=== PATIENT | male | born 2000 | race Caucasian/White ===

== ENCOUNTER 2022-07-26 15:50 | Emergency (ER) | payer OTHER, SELFPAY ==
[2022-07-26 15:51] VITALS: BP 133/58; PULSE 77; RESP 18; TEMP 36.9; O2SAT 98
[2022-07-26 16:23] LABS: Basophils Percent Auto 0.3 % (0.2-1.2); Eosinophils Percent Auto 0.4 % (0-4.4); Hematocrit 43.1 % (42.0-52.0); Hemoglobin 14.4 g/dL (14.0-18.0); Immature Granulocyte Absolute 0.03 K/mm3 (0.00-0.031); Immature Granulocyte Percent A 0.3 % (0-0.5); Lymphocytes Absolute Auto 2.05 K/mm3 (0.9-3.2); Mean Corpuscular HGB Conc 33.4 g/dl (32-36); Mean Corpuscular Hemoglobin 28.8 pg (26-34); Mean Corpuscular Volume 86.2 fl (80-100); Mean Platelet Volume 10.7 fl (7.4-10.4); Monocytes Absolute Auto 1.5 K/mm3 (0.1-0.6); Monocytes Percent Auto 13.7 % (2.6-8.5); Neutrophils Absolute Auto 7.2 K/mm3 (1.3-6.7); Neutrophils Percent Auto 66.3 % (45.5-73.1); Platelet Count Result 214 k/mm3 (150-375); Red Cell Distribution Width 13.3 % (11.5-14.5); White Blood Count 10.8 K/mm3 (4.5-10.0)
[2022-07-26 16:43] LABS: Alanine Aminotransferase 33 U/L (6-50); Albumin Level 4.4 g/dL (3.5-5.1); Alkaline Phosphatase 76 U/L (38-126); Anion Gap 12 mmol/L (8-16); Aspartate Amino Transferase 34 U/L (17-59); Bilirubin,Total 0.7 mg/dL (0.2-1.3); Blood Urea Nitrogen 11 mg/dL (9-20); Calcium 9.4 mg/dL (8.4-10.2); Carbon Dioxide 29 mmol/L (22-30); Chloride 101 mmol/L (98-107); Estimated CRCL calculation 120 ml/min; Estimated Glomerular Filt Rate > 60; Glucose 90 mg/dL (65-110); Lipase 127 U/L (23-300); Potassium 3.7 mmol/L (3.4-5.0); Sodium 142 mmol/L (137-145)
--- NOTE | 2022-07-26 17:30 | PC.NURSE ---
Pt to intake desk and states not wanting to be seen due to the wait. Pt states I will be back tomorrow. Pt ambulated out in NAD w/ steady gait.
[2022-07-26 17:53] LABS: Appearance Urine Clear (Clear); Bilirubin Urine 1+ (Negative); Blood Urine Negative (Negative); Color Urine Yellow (Yellow); Glucose Urine UA Negative (Negative); Ketones Urine Negative (Negative); Leukocyte Esterase Ur Negative LEU/UL (Negative); Nitrate Urine Negative (Negative); Protein Urine Negative (Negative); Specific Grav Ur 1.025 (1.001-1.035); Urobilinogen Urine 0.2 mg/dL (<2.0)
[2022-07-26 18:01] LABS: Mucus Urine Few /lpf; WBC Urine 0-3 /hpf
[2022-07-26 18:07] LABS: Add Urine Microscopic? YES
== END 2022-07-26 17:53 | disposition left against medical advice (07) ==
LOC: ANHED 17:47
PROVIDERS: Emergency Provider Emergency Medicine; PCP Pediatrics
DX: R19.7 Diarrhea, unspecified (principal)
CPT/HCPCS: 36415; 80053; 81001; 83690; 85025; 99199

== ENCOUNTER 2025-07-13 15:24 | Emergency (ER) | payer OTHER, SELFPAY | END 2025-07-13 15:25 | disposition left against medical advice (07) | DX: Z53.21 Procedure and treatment not carried out due to patient leaving prior to being seen by health care provider (principal) | CPT/HCPCS: 99199 ==

== ENCOUNTER 2025-07-13 15:50 | Emergency (ER) | payer OTHER, SELFPAY ==
--- OUTSIDE RECORDS SUMMARY | 2025-07-13 15:52 | XMS_ITS | Clinical Summary ---
Author Organization [address] Address [address] [place] [id number] Care Team Providers Care Wine Maker Name Role Phone Yash Pérez MD Primary Care Provider Unavai lable Allergies No known active allergies Medications amphetamine-dext roamphetamine (ADDERALL XR) 20 mg Extended Release 24 hour capsule Take 1 Cap by mouth daily operations lead. 30 Cap 0 07/15/2014 Active Active Problems Problem Noted Date Diagnosed Date Essential and other specified forms of tremor Superficial foreign body lip without major open wnd without infection 06/12/2011 Overview (06/12/2011): fish hook to lower lip ADHD (attention deficit hyperactivity disorder) 03/17/2010 At risk for overweight, pediatric, BMI 85-94% fo r age 0703/17/2010 Immunizations Immunization Administration Dates Next Due (ADACEL/BOOSTRIX)(10 YR UP) TDAP VACCINE, 0.5ML, IM 04/21/2011 (GARDASIL)(9-45 YRS) HUMAN PAPILLOMAVIRUS VACCINE, TYPES 6, 11, 16, 18, QUADRIVALENT (4VHPV), 3 DOSE, IM 04/18/2014 (HAVRIX/VAQTA)(12 MO-18 YRS) HEPATITIS A VACCINE 0.5 ML PED/ADOL 2 DOSE, IM 01/24/2013,04/21/2011 (INFANRIX)(6 WKS-6 YRS) DIPT HERIA, TETANUS TOXOIDS, AND ACCELLULAR PERTUSSIS VACCINE (DTAP), 0.5 ML IM 04/21/2005,10/16/2001,2000,09/01,2000 (IPOL)(6 WKS AND UP) POLIOVI JOSE VACCINE, INACTIVATED (IPV), 3 DOSE, SUBCUT OR IM 04/21/2005,10/16/2001,2000,06/10 (M-M-R II/PRIORIX)(12 MO UP) MEASLES, MUMPS AND RUBELLA VIRUS VACCINE, 0.5 ML IM/SUBCUT 04/21/2005,07/12/2001 (VARIVAX)(12 MOS UP)VARICELL A VIRUS VACCINE (PF) 0.5 ML, SUB CUT 04/21/2011,04/11/2001 HIB, Unspecified Formulation 10/05/2001, 2000,2000,06/10 Hepatitis B Vaccine 01/09/2001,2000,1999 Meningococcal A Conjugate Vaccine IM 04/21/2011 Pneumococcal conjugate, unsp ecified formulation 2000,2000,2000,06/02 Skin Test TB 04/05/2003 Family History Medical History Relation Name Comments Healthy Brother Other Brother appendicitis at 6 y.o. Healthy Father High Cholesterol Maternal Grandfather Hypertension Maternal Grandfather Other Maternal Grandmother Friedri ch's Ataxia Healthy Mother Cancer Paternal Grandfather Bone ca ncer, metastatic lymphoma? 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 Gender Identity Not on file Sexual Orientation Not on file Occupation Industry Job Start Date Job End Date Not on file Not on file Not on file Not on file Last Filed Vital Signs Vital Sign Reading Time Taken Comments Blood Pressure 108/66 02/03/2016 2:37 PM CDT Pulse 76 02/03/2016 2:37 PM CDT Temperature 36.9 C (98.5 F) 02/03/2016 2:37 PM CDT Respiratory Rate 16 02/03/2016 2:37 PM CDT Oxygen Saturation 99% 06/12/2011 1:55 PM CDT Inhaled Oxygen Concentration - - Weight 70.3 kg (155 lb) 02/03/2016 2:37 PM CDT Height 176.5 cm (5' 9.5) 02/03/2016 2:37 PM CDT Body Mass Index 22.56 02/03/2016 2:37 PM CDT Plan of Treatment Health Maintenance Due Date Last Done Comments HPV VACCINES (2 - Male 2-dos e series) 10/19/2014 04/18/2014 DTAP/TDAP/TD VACCINES (7 - T d or Tdap) 04/21/2021 04/21/2011, 04/21/2005, 10/16/2001, Additional history exists INFLUENZA VACCINE (#1) 2025 HEPATITIS B VACCINES Completed 01/09/2001, 2000, 2000 CHLAMYDIA SCREENING (ANNUAL) 11-24 YEARS Discontinued 02/03/2016 Procedures Procedure Name Priority Date/Time Associated Diagnosis Comments GC/CHLAMYDIA, GENITAL Routine 02/03/2016 3:41 PM CDT from Last 3 Months or Most Recently Relevant to Health Maintenance Results * GC/CHLAMYDIA, GENITAL (02/03/2016 3:41 PM CDT) C TRAC RNA NOT DETECTED NOT DETECTED [facility] N.GONORRHOEAE RNA, TMA NOT DETECTED NOT DETECTED [facility] SEE NOTE [facility] Comment: This test was performed using the APTIMA COMBO2 Assay ([employer] The analytical performance characteristics of this assay, when used to test [facility] specimens have been determined by [employer] [facility]. REPORT COMMENT: FASTING:NO Test Performed at: [facility] [address] [place] [address] JACITNO CARDENAS DO,MPH 02/03/2016 3:41 PM CDT us Yash Pérez MD MICRO - GEN [employer] [facility] Fi nal Result [facility] [address] [place] [address] from Last 3 Months or Most Recently Relevant to Health Maintenance Insurance [employer] ACCESS CHOICE [employer] CHOICE POS Care Teams Wine Maker Relationship Specialty Start Date End Date Yash Pérez MD PCP - General Pediatrics 01/27/10
[2025-07-13 16:00] VITALS: BP 140/59; PULSE 90; RESP 16; TEMP 36.7; O2SAT 100
[2025-07-13 17:16] LABS: Syphilis IgG/IgM Antibody Non-Reactive (Nonreactive)
[2025-07-13 17:27] LABS: Trichomonas Vag PCR NOT DETECTED (NOT DETECTE)
--- NOTE | 2025-07-13 18:08 | ED_ITS ---
HPI - Male Genitourinary General Chief complaint: Urogenital-Male Stated complaint: STD exposure Time Seen by Provider: 07/13/25 17:02 History of Present Illness HPI Narrative: Patient is a 25-year-old male who presents ER for concerns regarding an STD exposure. He slept with a woman 1 week ago and had unprotected sex. She then found out that he was talking to her sister as well and she told him that she had syphilis. He had contracted gonorrhea from the sane individual previously 2 months ago. He has experienced no lesions the penis. No dysuria, no testicular pain, and no urethral discharge. He has no rash. Related Data Allergies Allergy/AdvReac Type Severity Reaction Status Date / Time No Known Allergies Allergy Verified 07/13/25 15:50 Review of Systems Constitutional: Constitutional: Reports no additional constitutional complaints Gastrointestinal: Gastrointestinal: Reports no additional gastrointestinal complaints Genitourinary: Genitourinary: Reports no additional male genitourinary compla ints Integumentary/Breasts: Skin/Breast: Reports system reviewed and no additional complaints, except as docu PMFSH Past Medical History Medical History (Updated 07/13/25 @ 18:09 by Ezekiel Dodge MD) Healthy adult male Exam Narrative: GENERAL: Well-appearing, well-nourished, and in no acute distress. HEAD: Normocephalic, atraumatic. ENT: Mucous membranes moist. : Normal appearing external genitalia with circumcised penis as free from lesions/vesicles, no urethral discharge, left-sided varicocele, no testicular tenderness or enlargement. Normal scrotum. EXTREMITIES: Normal range of motion. No edema. SKIN: Warm, dry, no rash. NEURO: Alert and oriented x3. PSYCH: Normal mood and affect. Course Course Emergency Course: Patient informed of results. Discharge home. Vital Signs Vital signs: Vital Signs Temperature 98.0 F 07/13/25 16:00 Pulse Rate 90 07/13/25 16:00 Respiratory Rate 16 07/13/25 16:00 Blood Pressure 140/59 L 07/13/25 16:00 Pulse Oximetry 100 07/13/25 16:00 Temperature 98.0 F 07/13/25 16:00 Pulse Rate 90 07/13/25 16:00 Respiratory Rate 16 07/13/25 16:00 Blood Pressure 140/59 L 07/13/25 16:00 Pulse Oximetry 100 07/13/25 16:00 MDM - Male Genitourinary Differential Diagnosis Differential diagnosis: Likely urinary tract infection, urethritis, epididymitis, genital herpes simplex and other (Syphilis) Lab Data Labs: Lab Results 07/13/25 Range/Units 16:14 Syphilis IgG/IgM Ab Non-reactive (Nonreactive) C. trachomatis (PCR) Not detected (NOT DETECTE) N. gonorrhoeae (PCR) Not detected (NOT DETECTE) T. vaginalis (PCR) Not detected (NOT DETECTE) Discharge Plan Discharge Clinical Impression: Unprotected sex Patient Disposition: Home Condition: Stable Instructions: Safe Sex Practices (ED) Additional Instructions: Is recommended that you engage in safe sex practices or if you are going to be active with multiple partners in on long-term relationship. Return ER if you develop a rash to your hands or feet, you develop drainage from the tip of your penis, or you have burning urination. Patient Language: Georgian Follow-up/Referrals: PHYSICIAN,BURGLAR ALARM INSPECTOR [Primary Care Provider, Internal Medicine] Skye Avalos DO [Physician, Family Practice] - 1 Week
[2025-07-13 18:54] VITALS: BP 134/66; PULSE 89; RESP 20; O2SAT 100
== END 2025-07-13 18:55 | disposition home or self-care (01) ==
LOC: ANHED 18:23
PROVIDERS: Emergency Provider Emergency Medicine
DX: Z20.2 Contact with and (suspected) exposure to infections with a predominantly sexual mode of transmission (principal); Z72.51 High risk heterosexual behavior
CPT/HCPCS: 36415; 86593; 87491; 87591; 87661; 99283